=== PATIENT | female | born 1985 | race Caucasian/White ===

== ENCOUNTER → 2020-10-23 17:46 | Outpatient (CLI) | payer BC, SELFPAY ==
[2020-10-23 16:16] VITALS: BMI 24.3
[2020-10-27 13:52] LABS: HPV APTIMA, High Risk Negative (Negative)
== END ==
PROVIDERS: PCP Internal Medicine; Referring Provider Obstetrics & Gynecology; Visit Provider Obstetrics & Gynecology
DX: Z12.4 Encounter for screening for malignant neoplasm of cervix (principal); N76.0 Acute vaginitis
CPT/HCPCS: 87070; 87205; 87624; 88175; G0145

== ENCOUNTER 2021-11-07 11:22 | Outpatient (CLI) | payer BC, SELFPAY ==
[2021-11-07 15:37] LABS: Absolute Lymphocyte Count 1.85 X10^3/uL (0.83-4.51); Absolute Neutrophil Count 2.5 X10^3/uL (2.0-7.7); Basophil# 0.04 X10^3/uL; Basophil% 0.8 % (0-1); Eosinophil# 0.12 X10^3/uL; Eosinophils% 2.5 % (0-5); Hematocrit 42.6 % (37-47); Hemoglobin 13.9 g/dL (12.0-15.0); Lymphocyte # 1.85 X10^3/ul (0.83-4.51); Lymphocyte % 38.3 % (19-41); Mean Corp Hgb Conc 32.6 g/dL (32-36); Mean Corpuscular Volume 85.9 fL (81-99); Mean Platelet Vol. 9.1 fl (6.2-12.0); Monocyte# 0.34 X10^3/uL; NRBC Flagged by Analyzer 0 % (0-5); Neutrophil # 2.47 X10^3/uL (2.7-7.7); Neutrophil % 51.2 % (47-70); Platelet Count 345 K/mm3 (150-450); RBC Distribution Width SD 40.4 fl (35.1-43.9); Red Blood Count 4.96 M/mm3 (4.2-5.4); White Blood Count 4.8 K/mm3 (4.4-11.0)
[2021-11-07 16:01] LABS: Ferritin 17 ng/mL (8-252); T4 Free Direct 1.01 ng/dL (0.76-1.46); Thyroid Stim Hormone (TSH) 0.87 uIU/mL (0.358-3.74)
[2021-11-11 15:07] LABS: Vitamin D 1,25-Dihydroxy 63.2 pg/mL (19.9-79.3)
[2021-11-12 08:10] LABS: Anti-Nuclear Antibody Test Negative (.)
[2021-11-12 20:49] LABS: Zinc, Plasma or Serum 64 ug/dL (44-115)
== END 2021-11-07 23:59 | disposition home or self-care (01) ==
LOC: MTLAB 11:25
PROVIDERS: PCP Internal Medicine; Referring Provider Dermatology; Visit Provider Dermatology
DX: L65.9 Nonscarring hair loss, unspecified (principal); L21.8 Other seborrheic dermatitis
CPT/HCPCS: 36415; 82306; 82652; 82728; 84439; 84443; 84630; 85025; 86038

== ENCOUNTER 2024-02-18 18:07 | Emergency (ER) | payer MEDICAID, SELFPAY ==
[2024-02-18 18:08] VITALS: BP 154/98; PULSE 77; RESP 18; TEMP 36.1; O2SAT 97; BMI 26.3
--- NOTE | 2024-02-18 18:59 | EDS_ITS ---
HPI History of Present Illness Chief Complaint: Neuro S/Sx Informant: patient Onset/Context/Timing Onset: Today Context: Sudden Onset Timing: Continuous Quality: Dull Location: Generalized headache Worsened by: Light Relieved by: Nothing Narrative Narrative: Patient presents with headache, left hand paresthesias, facial paresthesias, and visual disturbance that occurred today. Patient states that she noted some wavy changes in her vision. Patient states that she turned her neck and the vision resolved. Patient states that soon after that she developed a headache. Patient states that several hours later she noted some numbness to her left hand and to her lip. Patient states this has resolved since arriving to the emergency department. Patient still complains of a dull headache. Patient states she had a history of migraine headaches when she was a child but has not had a migraine headache in a long time. [facility] Medical History (Updated 02/18/24 @ 21:[address] Giovanni Marino, DO) History of vaginal delivery Home Medications ?Medication ?Instructions ?Recorded ?Last Taken ?Type magnesium oxide 500 mg capsule 500 mg PO DAILY 09/02/22 Unknown History multivitamin 1 tab PO DAILY 09/02/22 Unknown History fish oil PO 10/20/[address] melissa wart PO 10/20/23 Unknown History vit d PO 10/20/23 Unknown History zinc PO 10/20/23 Unknown History meloxicam 7.5 mg tablet 7.5 mg PO DAILY #10 tabs 11/24/23 Unknown Rx Allergy/AdvReac Type Severity Reaction Status Date / Time No Known Allergies Allergy Verified 02/18/24 18:10 Family History Father Cancer Mother Hypertension Surgical History (Updated 02/18/24 @ 19:[address] 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[facility] ED Constitutional Constitutional ED: Denies chills or fever(s) Eyes Eyes: Reports blurry vision and change in vision ENT ENT ED: Denies rhinorrhea or sore throat Cardiovascular Cardiovascular: Denies chest pain or palpitations Respiratory/Chest Respiratory/Chest: Denies cough or dyspnea Gastrointestinal Gastrointestinal: Reports nausea; Denies vomiting Genitourinary Genitourinary ED: Denies dysuria or hematuria Musculoskeletal Musculoskeletal: Reports neck pain; Denies back pain Integumentary Denies abscess or rash Neurologic Neurologic: Reports headache(s); Denies weakness Allergic/Immunologic Allergic/Immunologic ED: Denies mouth swelling or urticaria EXAM Physical Exam Const Vital Signs: 02/18/24 18:08 Temperature 97 F L Temperature Source Temporal Pulse Rate 77 Respiratory Rate 18 Blood Pressure 154/98 H Blood Pressure Mean 116 Pulse Ox 97 Oxygen Delivery Method Room Air Positive well nourished and well developed General Appearance ED: well developed and NAD HEENT Reports moist mucous membranes Neck supple and no JVD Resp normal respiratory effort and clear to auscultation bilaterally Cardio regular rate and regular rhythm GI non-tender and non-distended Palpation: soft Extremity normal to inspection Neuro oriented x3, CN's II-XII intact bilaterally and no sensory deficits noted Sensorium / Orientation: alert Motor Exam: strength 5/5 throughout Psych mental status grossly normal MDM MDM MDM Narrative Medical decision making narrative: Differential diagnosis includes migraine headache, TIA, electrolyte abnormality, and anxiety. CT scan of the brain will be obtained to assess for intracranial bleeding and stroke. CBC will be obtained to assess for anemia and leukocytosis. Basic metabolic profile will be obtained to assess for electrolyte abnormality and renal function. Lab Data Attestation: I reviewed the patient's lab results. Lab results narrative: CBC was reviewed and was within normal limits. Basic metabolic profile was reviewed and was within normal limits. Serum hCG was reviewed and was negative. Labs: Laboratory Results - last 24 hr 02/18/24 19:25 WBC 4.3 L RBC 5.06 Hgb 14.1 Hct 43.4 MCV 85.8 MCH 27.9 MCHC 32.5 RDW Std Deviation 40.6 RDW Coeff of Uma 13.0 Plt Count 315 MPV 9.0 Immature Gran % (Auto) 0.200 Neut % (Auto) 42.8 L Lymph % (Auto) 46.2 H Avery % (Auto) 7.6 Eos % (Auto) 2.5 Baso % (Auto) 0.7 Absolute Neuts (auto) 1.9 L Absolute Lymphs (auto) 2.00 Nucleated RBC % 0 Sodium 138 Potassium 3.5 Chloride 104 Carbon Dioxide 29.0 Anion Gap 5 BUN 9 Creatinine 0.71 Estim Creat Clear Calc 107.29 Est GFR (MDRD) Af Amer 117 Est GFR (MDRD) Non-Af 97 BUN/Creatinine Ratio 12.7 Glucose 96 Calcium 9.1 Serum , Qual NEGATIVE Radiography Diagnostic Testing: Clinical Impression(s) from Imaging Studies Brain CT 02/18/24 19:06 IMPRESSION: Normal unenhanced CT scan of the brain. Electronically Signed: Bradley Bonilla DO at 19:57 EDT , CT scan of the brain was obtained. There is no acute intracranial abnormality. This was interpreted by the radiologist and was also independently reviewed by myself. Treatment and Re-Evaluation :: Patient was given IV fluids, Reglan, and Benadryl. Patient felt better on reevaluation. Patient states her headache has resolved. Patient was advised of her findings. Patient was instructed to rest in a dark quiet room. Patient was instructed to follow-up with her primary care physician in 5 to 7 days. Patient understood and was agreeable with the plan. All questions were answered. Discharge Plan Triage Chief Complaint: Neuro S/Sx ED Provider: Giovanni Marino Dx/Rx/DC Orders Clinical Impression: Headache, migraine, Paresthesias in left hand Instructions: ED, Migraine (Classical) Prescriptions: No Action multivitamin Tablet 1 tab PO DAILY magnesium oxide 500 mg capsule 500 mg PO DAILY fish oil PO zinc PO vit d PO st melissa wart PO meloxicam 7.5 mg tablet 7.5 mg PO DAILY Qty: 10 0RF Primary Care Provider: Blanca Parada Referrals: Blanca Parada MD [Primary Care Provider] - 5-7 Days Print Language: Panamanian Disposition Disposition: Home, Self Care
--- NOTE | 2024-02-18 19:06 | CT_ITS ---
STUDY: CT BRAIN WITHOUT CONTRAST REASON FOR EXAM: Female, 39 years old. Pain RADIATION DOSAGE (If Supplied By Facility): CTDIvol = ( 44.99 ) mGy, DLP = ( 762.36 ) mGycm TECHNIQUE: Transaxial CT imaging of the brain was performed without administration of intravenous contrast material. Individualized dose optimization techniques were used for this CT. COMPARISON: No relevant priors. FINDINGS: Normal soft tissue structures. Normal calvarium. Normal size ventricles and extra-axial spaces for the patient''s age. Normal white matter tracts of the cerebral hemispheres. Normal basal ganglia and thalami. Normal brainstem. Normal cerebellum. There is no intracranial hemorrhage. There are no findings of an acute ischemic infarction. Normal visualized paranasal sinuses. CT/Brain/Head without Contrast IMPRESSION: Normal unenhanced CT scan of the brain. Electronically Signed: Bradley Bonilla DO at 19:57 EDT ,
[2024-02-18] MEDS: DiphenhydrAMINE 50 MG/ML Syringe 25 MG IV (19:23)
[2024-02-18] MEDS: 0.9% Normal Saline (1000mL) 1,000 ML 999 ML IV (19:23)
[2024-02-18] MEDS: Metoclopramide 10 MG/2 ML Vial IV (19:24)
[2024-02-18 19:27] VITALS: BMI 26.3
[2024-02-18 19:38] LABS: Absolute Neutrophil Count 1.9 X10^3/uL (2.0-7.7); Basophil# 0.03 X10^3/uL; Basophil% 0.7 % (0-1); Eosinophil# 0.11 X10^3/uL; Eosinophils% 2.5 % (0-5); Hematocrit 43.4 % (37-47); Hemoglobin 14.1 g/dL (12.0-15.0); Lymphocyte % 46.2 % (19-41); Mean Corp Hgb Conc 32.5 g/dL (32-36); Mean Corpuscular Hgb 27.9 pg (27.0-32.0); Mean Corpuscular Volume 85.8 fL (81-99); Monocyte# 0.33 X10^3/uL; Monocyte% 7.6 % (0-10); NRBC Flagged by Analyzer 0 % (0-5); Neutrophil # 1.85 X10^3/uL (2.7-7.7); Neutrophil % 42.8 % (47-70); Platelet Count 315 K/mm3 (150-450); RBC Distribution Width SD 40.6 fl (35.1-43.9); Red Blood Count 5.06 M/mm3 (4.2-5.4); White Blood Count 4.3 K/mm3 (4.4-11.0)
[2024-02-18 19:47] LABS: Internal QC Validated? YES +Cl - CLEAR BKGD; Pregnancy, Serum, hCG Quali. NEGATIVE Negative
[2024-02-18 19:52] LABS: Anion Gap 5 (5-15); BUN 9 mg/dL (7-18); BUN/Creat Ratio 12.7 RATIO (10-20); Calcium,Total 9.1 mg/dL (8.5-10.1); Chloride 104 mmol/L (98-107); Creatinine, Serum 0.71 mg/dL (0.55-1.02); EST Glomerular Filtration Rate 97 mL/min (>60); Est Glom Filt Rate - Afr Amer 117 mL/min (>60); Estimated Creatinine Clearance 107.29 ml/min; Glucose 96 mg/dL (74-106); Potassium 3.5 mmol/L (3.5-5.1); Sodium Level 138 mmol/L (136-145)
[2024-02-18 20:08] VITALS: BP 134/74; PULSE 74; RESP 16; O2SAT 99
[2024-02-18 21:26] VITALS: BP 128/69; PULSE 71; RESP 16; TEMP 36.6; O2SAT 99
== END 2024-02-18 21:27 | disposition home or self-care (01) ==
PROVIDERS: Emergency Provider Emergency Medicine; PCP Internal Medicine; Visit Provider Emergency Medicine
DX: G43.909 Migraine, unspecified, not intractable, without status migrainosus (principal); R20.2 Paresthesia of skin
CPT/HCPCS: 70450; 80048; 84703; 85025; 96361; 96374; 96375; 99283; J7030; A4216

== ENCOUNTER 2024-07-31 11:48 | Emergency (ER) | payer MEDICAID, SELFPAY ==
[2024-07-31 11:49] VITALS: BP 140/81; PULSE 77; RESP 17; TEMP 36.4; O2SAT 100; BMI 25.2
--- NOTE | 2024-07-31 12:38 | EDS_ITS ---
HPI History of Present Illness Chief Complaint: Ear Problem Informant: patient Onset/Context/Timing Onset: Days Context: Gradual Onset Timing: Continuous Current Severity: Moderate Maximum Severity: Moderate Narrative Narrative: 39-year-old female history of prior shingles on her chest wall. On Friday started and pain along her right ear and forehead. Saw her primary care physician on diagnosed her with shingles started on Medrol Dosepak and Famvir. Said the pains gotten worse. Is controlled when she uses hydrocodone at home which was an old prescription she had from a dental visit but when that wears off the pain returns. She denies any visual change or pain. Prior similar symptoms: No Recent Illness/Hospitalization: No PFSH PFSH Medical History Shingles History of vaginal delivery Home Medications ?Medication ?Instructions ?Recorded ?Last Taken ?Type multivitamin 1 tab PO DAILY 09/02/22 Unknown History fish oil PO 10/20/23 Unknown History vit d PO 10/20/23 Unknown History famciclovir 500 mg tablet 500 mg PO Q8H #15 tabs 07/29/24 Unknown Rx magnesium aspart,citrate,oxide mg PO 07/29/24 Unknown History methylprednisolone 4 mg tablets in See Rx Instructions PO PER PKG DIR 07/29/24 Unknown Rx a dose pack (Medrol (Vishal)) #21 tabs hydrocodone 5 mg-acetaminophen 300 1 tab PO Q4H PRN pain 5 days #20 07/31/24 Unknown Rx mg tablet tabs Allergy/AdvReac Type Severity Reaction Status Date / Time No Known Allergies Allergy Verified 07/31/24 11:49 Family History Father Cancer Mother Hypertension Surgical History Hx of tympanostomy tubes Social History Smoking Status: Never smoker Tobacco: How many years used: 12 alcohol intake: current alcohol intake frequency: a few times a month details: social substance use type: does not use caffeine: Yes what type of physical activity do you participate in: none seatbelt use: always do you feel safe at home: Yes additional social history: [employer]- [employer] 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ROS ROS ED ROS Narrative URI virus in June. Constitutional Constitutional ED: Denies chills or fever(s) Eyes Eyes: Denies blurry vision ENT ENT ED: Denies ear pain Cardiovascular Cardiovascular: Denies chest pain Respiratory/Chest Respiratory/Chest: Denies cough Gastrointestinal Gastrointestinal: Denies abdominal pain Genitourinary Genitourinary ED: Denies dysuria Musculoskeletal Musculoskeletal: Denies arthralgias Integumentary Denies abscess Neurologic Neurologic: Denies headache(s) Psychiatric Psychiatric: Denies anxiety Endocrine Endocrinology: Denies cold intolerance Hematologic/Lymphatic Hematologic/Lymphatic: Denies easy bruising Allergic/Immunologic Allergic/Immunologic ED: Denies mouth swelling, tongue swelling or urticaria EXAM Physical Exam Narrative Exam Narrative: Well-appearing 39-year-old female. Vital signs stable afebrile. H EENT exam pupils round react to light. No involvement of the eye. Nose is uninvolved. There is a very minor rash along her right jainism. The ear ear canal and eardrum are unremarkable no signs of the rash. There is no crusting. There is no discharge. Forehead eye and cheek are not involved. Mouth unremarkable. Good dentition. No trismus. No trouble opening or closing her jaw. No TMJ tenderness. Neck nontender. No lymphadenopathy. Lungs clear. Heart regular rhythm. Abdomen soft. Otherwise exam unremarkable. Const Vital Signs: 07/31/24 11:49 Temperature 97.6 F L Temperature Source Temporal Pulse Rate 77 Respiratory Rate 17 Blood Pressure 140/81 H Blood Pressure Mean 100 Pulse Ox 100 Oxygen Delivery Method Room Air Positive well nourished and well developed; Negative for obese, cachectic, contractures or unkempt General Appearance ED: well developed and NAD; Negative for unkempt, cachectic, contractures, cyanotic, diaphoretic or pallor Nutritional Appearance: Negative for cachectic or obese HEENT Reports TM's clear and moist mucous membranes HEENT Narrative: Small shingles rash right jainism area. Eye and ear trauma canal not involved. Negative for trauma or tenderness Tympanic Membrane ED: Yes TM's clear Eyes PERRL and EOMs intact bilaterally General Eye ED: Negative for pale conjunctiva or scleral icterus Neck no lymphadenopathy, supple and no JVD General: Negative for tenderness Chest Wall inspection of chest normal and palpation of chest normal Resp normal respiratory effort and clear to auscultation bilaterally Effort and Inspection: Negative for retractions Auscultation: Negative for rales, rhonchi, wheezes or diminished lung sounds Cardio regular rate, regular rhythm, S1 normal heart sound, S2 normal heart sound and no murmurs GI normal to inspection, nondistended, normoactive bowel sounds, non-tender, non- distended and no masses Palpation: soft; Negative for tender, guarding or rebound tenderness present Back/Spine no CVA tenderness Neuro oriented x3 and CN's II-XII intact bilaterally Sensorium / Orientation: alert; Negative for orientation impaired, lethargic or stuporous Motor Exam: strength 5/5 throughout Psych mental status grossly normal Appearance: Negative for unkempt Attitude: No agitated Mood & Affect: Negative for depressed, anxious or tearful Skin no rashes or lesions noted, no wounds and skin turgor normal Skin Narrative: Small shingles rash right jainism area. General Skin Exam: Negative for jaundice or pallor Rashes: rashes noted MDM MDM MDM Narrative Medical decision making narrative: 39-year-old female right forehead and ear pain from shingles. She is already on the appropriate medications Famvir and Medrol Dosepak. She rewritten some hydrocodone for pain. Outpatient follow-up with her primary care physician. Discharge Plan Triage Chief Complaint: Ear Problem ED Provider: Doe Cardoza Dx/Rx/DC Orders Clinical Impression: Shingles Instructions: ED Shingles (Herpes Zoster) Prescriptions: New hydrocodone-acetaminophen 5-300 mg tablet 1 tab PO Q4H PRN (Reason: pain) 5 Days Qty: 20 0RF No Action multivitamin Tablet 1 tab PO DAILY fish oil PO vit d PO magnesium aspart,citrate,oxide 400 mg magnesium capsule PO famciclovir 500 mg tablet 500 mg PO Q8H Qty: 15 0RF methylprednisolone [Medrol (Vishal)] 4 mg tablets,dose pack See Rx Instructions PO PER PKG DIR Qty: 21 0RF Rx Instructions: PO PER PKG DIR for 6 days Primary Care Provider: Blanca Parada Referrals: Blanca Parada MD [Primary Care Provider] - As Needed Activity Restrictions/Additional Instructions: This all does appear to be is from shingles and the pain goes along with the nerve. Continue prescription for your Medrol Dosepak. Your Famvir and finish both of those. Continue the hydrocodone for pain. Pain continues there is another medication they could try which would be gabapentin but I would not start that at this time because this may all go away over the next several days to week. Print Language: Faroese Disposition Disposition: Home, Self Care
[2024-07-31 12:51] VITALS: BP 141/71; PULSE 69; RESP 17; TEMP 36.6; O2SAT 99
== END 2024-07-31 12:52 | disposition home or self-care (01) ==
LOC: ED 12:43
PROVIDERS: Emergency Provider Emergency Medicine; PCP Internal Medicine; Visit Provider Emergency Medicine
DX: B02.9 Zoster without complications (principal)
CPT/HCPCS: 99282

== ENCOUNTER 2024-08-01 21:59 | Emergency (ER) | payer MEDICAID, SELFPAY ==
[2024-08-01 21:59] VITALS: BP 139/93; PULSE 91; RESP 24; TEMP 36.8; O2SAT 96; BMI 25.2
[2024-08-01 22:01] VITALS: BP 139/93; PULSE 91; RESP 24; TEMP 36.8; O2SAT 96
--- NOTE | 2024-08-01 22:11 | ED.VIS.DENTA ---
HPI History of Present Illness Chief Complaint: Dental Detail of Chief Complaint: Dental pain, tooth #31 Informant: patient Onset/Context/Timing Onset: Weeks (Worse past 24 to 48 hours) Context: Sudden Onset Timing: Continuous Quality: Pain Location: Tooth #31 Current Severity: Mild Maximum Severity: Severe Worsened by: Cold liquids Relieved by: - (Nothing) Associated Symptoms Assocated Symptom - Dental: cold sensitivity; Negative for fever, jaw swelling, face swelling or hot sensitivity Narrative Narrative: Patient is a 39-year-old woman. She states that she had dental x-rays. The x-rays were suboptimal because she has a crown on that tooth. She denies drainage. Denies facial swelling. She had a rash and was seen by Dr. Blanca Parada and thought to have herpes varicella-zoster. She was placed on prednisone and antiviral. She has had no improvement. She denies ear pain. She denies fever, chills night sweats. She does endorse the pain gets worse with cold liquids. Hot liquids does not make it worse. She does endorse that chewing increases the pain as well. She has not noticed any jaw swelling. She denies change in voice. She has no history medic fever or heart murmur. She is not on any immunosuppressive medication. Prior similar symptoms: Yes Recent Illness/Hospitalization: No [facility] Medical History Shingles History of vaginal delivery Home Medications ?Medication ?Instructions ?Recorded ?Last Taken ?Type multivitamin 1 tab PO DAILY 09/02/22 Unknown History fish oil PO 10/20/23 Unknown History vit d PO 10/20/23 Unknown History famciclovir 500 mg tablet 500 mg PO Q8H #15 tabs 07/29/24 Unknown Rx magnesium aspart,citrate,oxide mg PO 07/29/24 Unknown History methylprednisolone 4 mg tablets in See Rx Instructions PO PER PKG DIR 07/29/24 Unknown Rx a dose pack (Medrol (Vishal)) #21 tabs hydrocodone 5 mg-acetaminophen 300 1 tab PO Q4H PRN pain 5 days #20 07/31/24 Unknown Rx mg tablet tabs hydrocodone-acetaminophen 5-325mg 1 tab PO Q6H PRN PRN Pain 3 days 08/01/24 Unknown Rx 5mg-325mg #10 TABLETS naproxen 500 mg tablet 500 mg PO BID #14 tabs 08/01/24 Unknown Rx penicillin V potassium 250 mg 500 mg (2 x 250 mg) PO 4X/DAY #28 08/01/24 Unknown Rx tablet tabs Allergy/AdvReac Type Severity Reaction Status Date / Time No Known Allergies Allergy Verified 07/31/24 11:49 Family History Father Cancer Mother Hypertension Surgical History Hx of tympanostomy tubes Social History Smoking Status: Never smoker Tobacco: How many years used: 12 alcohol intake: current alcohol intake frequency: a few times a month details: social substance use type: does not use caffeine: Yes what type of physical activity do you participate in: none seatbelt use: always do you feel safe at home: Yes additional social history: [employer] 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[facility] ED Constitutional Constitutional ED: Denies chills, fever(s) or subjective ENT ENT ED: Reports ear pain right (Pain is near the right TMJ.); Denies rhinorrhea or sore throat Cardiovascular Cardiovascular: Denies chest pain Respiratory/Chest Respiratory/Chest: Denies cough or dyspnea Gastrointestinal Gastrointestinal: Denies nausea or vomiting Integumentary Denies rash Neurologic Neurologic: Denies headache(s) Hematologic/Lymphatic Hematologic/Lymphatic: Denies easy bleeding or easy bruising EXAM Physical Exam Const Vital Signs: 08/01/24 21:59 08/01/24 22:01 Temperature 98.2 F 98.2 F Temperature Source Temporal Oral Pulse Rate 91 91 Respiratory Rate 24 H 24 H Blood Pressure 139/93 H 139/93 H Blood Pressure Mean 108 108 Pulse Ox 96 96 Oxygen Delivery Method Room Air Room Air Positive well nourished and well developed Constitutional Narrative: Vital signs reveal slight elevation of blood pressure. General Appearance ED: well developed and NAD HEENT HEENT Narrative: Ears are normal. External auditory canals normal. TMs are normal. Nares patent. Posterior pharynx out erythema exudate. Uvula midline. No deviation with protrusion. Patient does have a crown tooth #31. Based on the appearance of the occlusive surface patient had work done since there is filling material noted. There is no evidence of a periodontal abscess. There is no trismus. There is no findings to raise concern for Ludewig's angina. Mouth ED: Yes oral and palatal mucosa normal, Yes lips normal, Yes tongue normal, Yes salivary gland normal and No mouth trauma Mouth: oral and palatal mucosa normal, lips normal, tongue normal, salivary gland normal and No mouth trauma Eyes PERRL and EOMs intact bilaterally General Eye ED: Negative for pale conjunctiva or scleral icterus Neck no lymphadenopathy, supple and no JVD Neck Narrative: Trachea is midline. There is no inspiratory expiratory stridor. Lymph Lymphatic: no lymphadenopathy noted Resp normal respiratory effort and clear to auscultation bilaterally Cardio regular rate, regular rhythm, S1 normal heart sound, S2 normal heart sound and no murmurs Neuro oriented x3 and CN's II-XII intact bilaterally Sensorium / Orientation: alert Psych mental status grossly normal Psych Narrative: During the examination patient became tearful because of the pain. Skin no rashes or lesions noted and no wounds MDM MDM MDM Narrative Medical decision making narrative: Based on history and physical feel patient has symptomatic irreversible pulpitis. She may have dental pathology that we will need further vesication with dental films, which are not available through the emergency department. Since patient has a ride home she was treated with hydrocodone, Naprosyn and Pen-Vee K. There is no concern for Ludewig's angina. Findings are not consistent with TMJ syndrome. There is no rash to raise concern for herpes varicella-zoster. Furthermore there is no hyperesthesia. There is a rash noted first division of the trigeminal nerve over the temporal region. However the rash is not consistent with zoster. Discharge Plan Triage Chief Complaint: Dental ED Provider: Shane Lozano Dx/Rx/DC Orders Clinical Impression: Pain, dental, Symptomatic reversible pulpitis Instructions: ED Dental Pain Prescriptions: New hydrocodone-acetaminophen 5-325 mg tablet 1 tab PO Q6H PRN PRN (Reason: Pain) 3 Days Qty: 10 0RF penicillin V potassium 250 mg tablet 500 mg PO 4X/DAY Qty: 28 0RF naproxen 500 mg tablet 500 mg PO BID Qty: 14 0RF No Action multivitamin Tablet 1 tab PO DAILY fish oil PO vit d PO magnesium aspart,citrate,oxide 400 mg magnesium capsule PO famciclovir 500 mg tablet 500 mg PO Q8H Qty: 15 0RF methylprednisolone [Medrol (Vishal)] 4 mg tablets,dose pack See Rx Instructions PO PER PKG DIR Qty: 21 0RF Rx Instructions: PO PER PKG DIR for 6 days hydrocodone-acetaminophen 5-300 mg tablet 1 tab PO Q4H PRN (Reason: pain) 5 Days Qty: 20 0RF Primary Care Provider: Blanca Parada Referrals: Blanca Parada MD [Primary Care Provider] - Dentist,Your [STAFF PHYSICIAN] - 3-5 Days Print Language: Brazilian Disposition Disposition: Home, Self Care
== END 2024-08-01 22:22 | disposition home or self-care (01) ==
PROVIDERS: Emergency Provider Emergency Medicine; PCP Internal Medicine; Visit Provider Emergency Medicine
DX: K04.01 Reversible pulpitis (principal); K08.89 Other specified disorders of teeth and supporting structures
CPT/HCPCS: 99282

== ENCOUNTER → 2024-09-13 | Outpatient (CLI) | payer MEDICAID, SELFPAY ==
--- NOTE | 2024-09-13 08:56 | BI_ITS ---
MAMMOGRAPHY - BILATERAL DIAGNOSTIC REASON FOR EXAM: Female, 39 years old. Right breast tenderness. PERTINENT HISTORY: Non-contributory. TECHNIQUE: Digital bilateral breast steve (3D mammographic acquisition) in the CC and MLO projections. 2-D mediolateral oblique (MLO) and craniocaudad (CC) views of both breasts were obtained. CAD: Full Field Digital Mammography with Computer Added Detection was performed. COMPARISON: None. Baseline examination. FINDINGS: Breast Composition: The breasts are extremely dense, which lowers the sensitivity of mammography. There are no dominant masses or suspicious calcifications. No other significant abnormalities are identified. BI/DIAG MAMM W/CAD, BILAT IMPRESSION: Negative diagnostic mammogram. With the patient''s history of tenderness in the upper outer quadrant of the right breast, correlation with ultrasound recommended. ASSESSMENT CATEGORY: BIRADS Category 0: Incomplete. Need additional imaging evaluation. A letter regarding these results will be sent to the patient by the facility within 30 days. Approximately 10% of breast cancers are not detected by mammography. A normal mammogram should not delay biopsy of a clinically suspicious abnormality. Electronically Signed: Jose Miguel Hernandez MD at 9:44 EST ,
--- NOTE | 2024-09-13 09:36 | US_ITS ---
STUDY: ULTRASOUND BREAST - RIGHT REASON FOR EXAM: Female, 39 years old. Right breast tenderness and firmness in the upper outer aspect of the right breast. TECHNIQUE: Axial and longitudinal images of the RIGHT breast were performed with a high resolution ultrasound transducer. # OF IMAGES: 11 COMPARISON: Comparison is made with prior mammogram done earlier in the day. FINDINGS: RIGHT Breast: The upper outer quadrant of the right breast was examined with ultrasound. There is dense fibroglandular tissue. No sonographic abnormality is seen. US/Breast Limited Unilateral IMPRESSION: No sonographic abnormality is seen. ASSESSMENT CATEGORY: BIRADS Category 1: Negative. A letter regarding these results will be sent to the patient by the facility within 30 days. Electronically Signed: Jose Miguel Hernandez MD at 10:11 EST ,
== END | disposition home or self-care (01) ==
LOC: OPBI 08:50
PROVIDERS: PCP Internal Medicine; Referring Provider Advanced Practice Midwife; Visit Provider Advanced Practice Midwife
DX: N64.4 Mastodynia (principal)
CPT/HCPCS: 77062; 76642; 77066; G0279